=== PATIENT | female | born 1940 | race Hispanic/Latino ===

== ENCOUNTER → 2025-03-22 | Day surgery (SDC) | payer MEDICARE, BC ==
[2025-03-14 11:28] LABS: BASOPHILS % 0.9 % (0.0-1.0); EOSINOPHILS % 2.6 % (0.0-6.0); LYMPHOCYTES % 35.2 % (18.0-39.1); MONOCYTES % 6.3 % (4.4-11.3); NEUTROPHILS % 54.5 % (38.7-80.0); RED CELL DISTRIBUTION WIDTH 13.1 % (11.7-14.4)
[~2025-03-22] MED LIST: ALLERGY MEDICAT25 MG PO; ASPIRIN81 MG PO; GLIMEPIRIDE2 MG PO; ISOSORBIDE MONO30 MG PO; LIDOCAINE HCL 2% LOCAL INJ 5 ML SDV VIAL INJ ONE; LOSARTAN POTASS25 MG PO; MAGNESIUM100 MG PO; METFORMIN HCL500 MG PO; METOPROLOL SUCC50 MG PO; OMEPRAZOLE40 MG PO; PROPOFOL IV EMULSION 10 MG/ML 20 ML VIAL ONE; SYNTHROID100 MCG PO; VITAMIN B COMP1 EACH PO; VITAMIN D325 MCG PO
[2025-03-22] MEDS: LACTATED RINGER'S 1,000 ML ONE (07:09)
[2025-03-22 08:07] VITALS: TEMP 97.2
[2025-03-22 08:30] VITALS: BP 166/83; PULSE 62; RESP 18; O2SAT 99
== END | disposition home or self-care (01) ==
LOC: OR 06:06
PROVIDERS: ATTEND Internal Medicine Gastroenterology
DX: R19.7 Diarrhea, unspecified (principal); D12.3 Benign neoplasm of transverse colon; K57.30 Diverticulosis of large intestine without perforation or abscess without bleeding; K64.8 Other hemorrhoids; K21.9 Gastro-esophageal reflux disease without esophagitis; E66.9 Obesity, unspecified; E11.9 Type 2 diabetes mellitus without complications; I10 Essential (primary) hypertension; E78.5 Hyperlipidemia, unspecified; E03.9 Hypothyroidism, unspecified; Z88.6 Allergy status to analgesic agent; Z88.0 Allergy status to penicillin; Z01.810 Encounter for preprocedural cardiovascular examination; Z01.812 Encounter for preprocedural laboratory examination; Z79.84 Long term (current) use of oral hypoglycemic drugs; Z79.899 Other long term (current) drug therapy; Z68.30 Body mass index [BMI] 30.0-30.9, adult; Z71.3 Dietary counseling and surveillance; Z80.0 Family history of malignant neoplasm of digestive organs
CPT/HCPCS: 36415 ×2; 45380; 45385; 82948; 85025; 88305; 93005; J2003; J2704; J7121; 45378